=== PATIENT | female | born 1940 | race Caucasian/White ===

== ENCOUNTER → 2024-11-22 11:43 | Outpatient (CLI) | payer OTHER, SELFPAY ==
--- NOTE | 2024-11-22 11:45 | DI.RAD.S_ITS ---
PROCEDURE: XR HAND LT MIN 3V INDICATIONS: Dropped heavy object on hand, mainly pointer finger TECHNIQUE: 3 views of the hand(s) acquired. COMPARISON: None. FINDINGS: Bones: Generalized decreased osseous mineralization noted. Comminuted fracture mid 2nd proximal phalanx noted with dorsal angulation of distal fracture fragment. Soft tissues: No suspicious soft tissue calcifications. IMPRESSION: Osteopenic comminuted fracture, 2nd proximal phalanx Approved by: Evan Pruett M.D. on 11/22/2024 at 11:20
== END ==
PROVIDERS: Referring Provider Nurse Practitioner Family; Visit Provider Nurse Practitioner Family
DX: S62.611A Displaced fracture of proximal phalanx of left index finger, initial encounter for closed fracture (principal); W20.8XXA Other cause of strike by thrown, projected or falling object, initial encounter
CPT/HCPCS: 73130

== ENCOUNTER 2024-11-25 09:25 | Day surgery (SDC) | payer MEDICARE, OTHER, SELFPAY ==
[2024-11-24 12:27] VITALS: BMI 28.0
[2024-11-25 10:10] VITALS: BMI 28.0
[2024-11-25 10:15] VITALS: BP 143/75; PULSE 86; RESP 20; TEMP 36.5; O2SAT 96
[2024-11-25] MEDS: ACETAMINOPHEN 325 MG TABLET 975 MG PO (10:20)
[2024-11-25] MEDS: LACTATED RINGERS 1,000 ML 42 ML IV (10:20)
--- NOTE | 2024-11-25 10:23 | P.HP_ITS ---
History of Present Illness History of Present Illness Date Patient Seen: 11/25/24 Time Patient Seen: 10:24 Date of Onset of Symptoms: 12/19/24 Chief complaint: Left index finger Narrative: The patient is an 84-year-old right-hand dominant female sustained an injury to her left index finger when she got hit by o'clock. There was bleeding. She was later seen at urgent Care she was placed into a splint. She was given some flexion. She denies any other injuries. She has not had any fevers or she does have aortic stenosis. She was not sure if she had a fracture. She has a displaced comminuted proximal phalanx base fracture of the index finger with angulation. This is an open fracture. She has been indicated for irrigation and debridement and fixation of the fracture and presents today for that. She denies any numbness or tingling. She states the swelling has improved. [facility] Medical History Anesthesia complication Aortic stenosis Bladder cancer (~2020) HLD (hyperlipidemia) HTN (hypertension) Diabetes Displaced fracture of proximal phalanx of left index finger Surgical History History of surgery (06/09/21) History of esophagogastroduodenoscopy (EGD) (10/01/23) Hx of cystoscopy (11/23/20) History of cataract extraction Hx of appendectomy History of carpal tunnel surgery of right wrist Social History household members: none Smoking Status: Never smoker alcohol intake: never Meds Home Medications and Allergies Home Medications Medication Instructions Recorded Confirmed Type atorvastatin 10 mg tablet 10 mg PO BEDTIME 11/22/24 11/24/24 History cephalexin 500 mg capsule 500 mg PO QID 7 days #28 caps 11/22/24 11/24/24 Rx cholecalciferol (vitamin D3) 50 50 mcg PO DAILY 11/22/24 11/24/24 History mcg (2,000 unit) capsule lisinopril 10 mg tablet 10 mg PO DAILY 11/22/24 11/24/24 History metformin 500 mg tablet 1,000 mg PO DAILY 11/22/24 11/24/24 History pantoprazole 40 mg tablet,delayed 40 mg PO DAILY 11/22/24 11/25/24 History release aspirin 81 mg capsule 81 mg PO DAILY 11/24/24 11/25/24 History Allergies Allergy/AdvReac Type Severity Reaction Status Date / Time glipizide Allergy Severe hypoglycemi Verified 11/25/24 10:09 a codeine Allergy Intermediate passed Verified 11/25/24 10:09 out Review of Systems Review of Systems Narrative: Aortic stenosis Exam Vital Signs (past 8 hours): - 11/25/24 10:15 Temperature 97.7 F Pulse Rate 86 Respiratory Rate 20 Blood Pressure 143/75 H Pulse Oximetry 96 Oxygen Delivery Method Room Air Oxygen Delivery Method Room Air Narrative Exam Narrative: Alert and oriented no acute distress HEENT exam normocephalic atraumatic Lungs clear to auscultation Heart regular rate Right upper extremity is benign full range of motion Left upper extremity demonstrates bruising and mild swelling around the proximal phalanx of the left index finger with a small laceration mid shaft of the proximal phalanx at the radial mid sagittal line. She was able to demonstrate flexion and extension of the digit sensation is grossly intact. Moderate deformity. Able to demonstrate wrist flexion wrist extension elbow flexion elbow extension thumb IP joint flexion and extension. Palpable radial pulse. Objective Imaging Left hand x-ray: My impression: Three views of the left hand and index finger AP oblique and lateral demonstrate comminuted left index proximal phalanx and base fracture with apex volar angulation Assessment & Plan Assessment and plan (1) Open fracture proximal phalanx finger: Qualifiers: Encounter type: initial encounter Finger: index finger Laterality: left Fracture alignment: displaced Qualified Code(s): S62.611B - Displaced fracture of proximal phalanx of left index finger, initial encounter for open fracture Status: Acute Plan The patient has a open displaced and angulated left proximal phalanx fracture. She has been indicated for irrigation debridement open reduction internal fixation pinning of the fracture to reduce the risk of infection improve alignment and reduce the risk of stiffness deformity and dysfunction. Risks of the surgery include but are not limited to persistent pain stiffness dysfunction malunion nonunion nerve damage, stiffness and infection. We feel overall that the benefits of surgery outweigh the risks. The risks and benefits of the procedure have been discussed with the patient and given the opportunity to ask questions. The risks of surgery include but are not limited to infection, malunion, nonunion, persistence of pain, damage to nerves and blood vessels, posttraumatic arthritis, DVT, PE, cardiopulmonary complications and . The patient expressed a thorough understanding of the risks and benefits of surgery and has elected to proceed. Consent was signed. We discussed planned fixation with wires would stay in place for approximately 4-6 weeks and be removed in clinic. She would be in a splint after surgery as well. Time-Based Coding :: [TOTAL MINUTES] spent with patient and on the chart (including review of chart, obtaining history, exam, reviewing outside data, placing orders, documenting exam and treatment plan, and counseling patient) on [DATE]. Quality VTE Deep Vein Thrombosis/Pulmonary Embolism Present on Admission: No
[2024-11-25] MEDS: BUPIVACAINE 0.5% W/ EPI (PF) 30 ML VIAL INJ (11:26)
--- NOTE | 2024-11-25 11:32 | P.OP_ITS ---
Operative Date/Time/Diagnoses Date of procedure: 11/25/24 Time of procedure: 10:45 Pre-op diagnosis: Open fracture left index finger Post-op diagnosis: same Procedure & Clinicians Procedure: Irrigation debridement and open reduction internal fixation open fracture left index finger CPT code 64756 modifier F1 Irrigation and debridement open fracture left index finger Same procedure as scheduled: Yes Indications: The patient was a 84-year-old right-hand dominant female that sustained a open fracture to the proximal phalanx of her left index finger this was a displaced fracture and open with a laceration radially at the index finger at the level of the fracture. She was indicated for open reduction internal fixation and irrigation debridement of the fracture to reduce the risk of malunion, infection and prolonged dysfunction. The risks and benefits of the procedure have been discussed with the patient and given the opportunity to ask questions. The risks of surgery include but are not limited to infection, malunion, nonunion, persistence of pain, damage to nerves and blood vessels, posttraumatic arthritis, DVT, PE, cardiopulmonary complications and . The patient expressed a thorough understanding of the risks and benefits of surgery and has elected to proceed. Consent was signed Surgeon: Sarai Hilliard Click Yes if Unassisted: Yes Anesthesia Type: General and Local Operative Notes Findings: Displaced comminuted and angulated proximal phalanx fracture base and shaft, open left index finger. 5 mm open laceration radial aspect along P1 this was extended opened excise sharply with a scalpel and debrided down to the level of bone. The fracture was then reduced and stabilized with K-wires. Closure Type: primary Specimen(s): none sent Prosthetic devices, grafts, tissues, transplants, or devices: 045 K-wire 054 K-wire Estimated Blood Loss (mL): 1 Blood products transfused: none Tourniquet time (min): 15 Procedure in detail: Patient was seen in the preoperative area the site of surgery was marked informed consent confirmed. This was the left hand left index finger. Patient was brought back to the operating room by the anesthesia team positioned supine on operative table. Anesthetic was administered. The left upper extremity was positioned on the hand table. Bony prominences were well padded. SCDs were on 1 on the lower extremities. A well-padded brachial tourniquet was applied to the left upper extremity. The left upper extremity was prepped and draped in standard sterile fashion a formal time-out procedure was performed confirming the patient's side and site of surgery administration of appropriate preoperative antibiotic and presence of informed consent. All were in agreement. Attention turned to the left upper extremity and Esmarch was used for exsanguination the tourniquet raised on the upper extremity to 250 mmHg. A digital block was 10 cc of 0.25% Marcaine with epinephrine was placed for the index finger. Attention was turned to the left index finger the area of the open wound was ellipsed sized out with a sharp scalpel and extended proximally and distally proximally a cm and a half. Dissection was taken carefully down to bone and the bone subcutaneous tissue were debrided and irrigated. Next attention was turned to fracture reduction. Reduction maneuver was completed with manual traction and flexion of the PIP joint and MCP joint. This corrected the apex volar angulation this was held in place while a 054 K-wire was introduced at the base of the proximal phalanx and advanced across the fra cture. A 2nd K-wire was advanced this was a 045 K-wire again from proximal to distal across the fracture. And carefully angulated so as to span the fracture and maintain reduction. This was scrutinized under multiplanar fluoroscopy AP oblique and lateral live intraoperative fluoroscopy was obtained interpreted confirming anatomic reduction of the fracture and stable alignment with 2 K- wires. Once this was completed K-wires were bent and cut and capped. The wounds were irrigated the incision was closed with 5 0 nylon suture. Xeroform gauze and a radial gutter splint were applied. The patient was awoken from anesthesia and taken to the recovery room in good condition there were no immediate complications from the procedure. All counts were correct. Complications: none Post-operative Condition: stable Disposition: PACU Plan for aftercare: Keep radial gutter splint in place until follow up. K-wires will remain in place 4-6 weeks and will be pulled in clinic in a staged procedure. Keep splint clean dry and intact.
[2024-11-25 11:35] VITALS: BP 93/48; PULSE 83; RESP 13; O2SAT 95
[2024-11-25 11:40] VITALS: BP 100/76; PULSE 89; RESP 14
[2024-11-25 11:45] VITALS: BP 126/77; PULSE 78; RESP 12; O2SAT 96
[2024-11-25 11:55] VITALS: BP 118/66; PULSE 74; RESP 14; TEMP 36.6; O2SAT 98
== END 2024-11-25 12:09 | disposition home or self-care (01) ==
PROVIDERS: Referring Provider Orthopaedic Surgery Foot and Ankle Surgery; Visit Provider Orthopaedic Surgery Foot and Ankle Surgery
PROC: (CPT 26735; principal; 2024-11-25 10:45)
DX: S62.611B Displaced fracture of proximal phalanx of left index finger, initial encounter for open fracture (principal); W22.8XXA Striking against or struck by other objects, initial encounter
CPT/HCPCS: 26735; 82962; J2405; J2704; J2765; J3010